=== PATIENT | female | born 1945 ===

== ENCOUNTER → 2016-10-04 | Outpatient (CLI) | payer MEDICARE, OTHER ==
[~2016-10-04] MED LIST: ADVIL200 MG PO; ALDACTONE25 MG PO; ARTIFICIAL TEAR15 ML OPHTH; COUMADIN ** IA5 MG PO; COUMADIN **IA1 MG PO; DILTIAZEM 24HR180 MG PO; FLONASE 50 MCG/16 GM NOSE; LASIX40 MG PO; MAGNESIUM250 M1 PO; MULTI-VITAMIN1 EACH PO; NORVASC5 MG PO; POTASSIUM PO; TIKOSYN250 MCG PO; TYLENOL EXTRA500 MG PO; VITAMIN C1000 MG PO; VITAMIN D-32000 UNI1 PO; XARELTO20 MG PO; ZANTAC (NON-FO150 MG PO
--- NOTE | ~2016-10-04 | ECHO ---
Stress Echocardiography Report Demographics Patient Name ANAM ARCE Date of Study 10/04/2016 Patient Number [id number] Visit Number [id number] Date of 1945 Room Number Accession Number [id number] Gender Female Age 71 year(s) Referring Christopher Rivas Cutter Helper Sary Seymour RDCS, Physician MD AGUILART Thomas Campbell RDCS, T Physician Interpreting Christopher Trucksmith Physician Evelyn PATRICIO Supervising Christopher Rivas Ordering Christopher PATRICIO/VLAD PATRICIO Physician Evelyn PATRICIO Nurse Marta Shankar RN Stress Third Rigger Sary Seymour RDCS, RVT The procedure was explained in detail to the patient. Risks, complications and alternative treatments were reviewed. Written consent was obtained. Medications Reviewed with Patient prior to Procedure. Conclusions Summary Duration:3:08 mins. METs:4.7 DP:18 K. Achieved:84% MPHR. No chest pain. Reason for termination:Fatigue and SOB. EKG:No ischemia. No arrythmias. DTS:3 (moderate risk). MR did not significantly get worse. Echo:No inducible ischemia. Procedure Type of Study Stress procedure:Treadmill Stress Echo w/o Contrast. Procedure Date Date: 10/04/2016 Start: 02:32 PM End: 02:41 PM Study Location: Echo Lab Indications:Mitral regurgitation. Patient Status: Routine Rhythm: Atrial fibrillation HR: 76 bpm BP: 127/94 mmHg Allergies - No known allergies. Risk Factors - The patient's risk factor(s) include: atrial fibrillation, chronic lung disease and arterial hypertension. - The patient has a former tobacco history. Rest ECG Within normal limits. Atrial fibrillation. Resting HR:78 bpmResting BP:127/94 mmHg Stress Stress Type: Exercise Predicted HR: 151 bpm Results Symptoms Shortness of breath. M-Mode/2D Measurements LA volume: 82 ml LVOT VTI: 13.1 cm Doppler Measurements AV Peak Velocity: 1.49 m/s MV Peak E-Wave: 1.12 m/s AV Peak Gradient: 8.88 mmHg MV Peak A-Wave: 0.33 m/s AV Mean Gradient: 4 mmHg MV E/A Ratio: 3.43 LVOT Peak Velocity: 0.74 m/s MV P1/2t: 89 msec MV Mean Gradient: 85 mmHg TR Velocity:3.29 m/s Estimated RAP:3 mmHg PV Peak Velocity: 1.02 m/s Estimated RVSP: 46 mmHg PV Peak Gradient: 4.16 mmHg Estimated PASP: 46.3 mmHg Findings Left Atrium The left atrium is mildly dilated by LA volume index measurement. Mitral Valve Mild-moderate mitral regurgitation by color Doppler. Mild prolapse of both mitral valve leaflet. Aortic Valve The aortic valve is mildly sclerotic. There is trivial aortic regurgitation by color Doppler. Tricuspid Valve Mild tricuspid regurgitation by color Doppler. Pulmonic Valve Mild-moderate pulmonic valve regurgitation by color Doppler. Contractility Score Rest LV regional wall motion:(0-Non visualized 1-Normal 2-Hypokinesis 3-Akinesis 4-Dyskinesis 5-Aneurysm) Signature dtt: Evelyn White dtd: 10/04/16 [id number] Physician Self Edit
== END | disposition disaster alternative care site (69) ==
LOC: GLAB 12:00 → GCAR 13:00 → GLAB 13:45
DX: I34.0 Nonrheumatic mitral (valve) insufficiency (principal); I10 Essential (primary) hypertension; I48.91 Unspecified atrial fibrillation

== ENCOUNTER 2016-10-10 10:00 | Inpatient (IN) | payer MEDICARE, OTHER ==
[~2016-10-10] VITALS: Ht 177.8 cm; Wt 88.4 kg
--- NOTE | ~2016-10-10 | DS ---
PATIENT'S NAME: ANAM ARCE [facility] AGE: 71 Y [address] ROOM: [address] [place], [place] [address] LOCATION: GPCU ADMIT DATE: 10/10/2016 Discharge Summary DISCHARGE DATE: 10/12/2016 FAMILY PHYSICIAN: Daphne Gentile DO ATTENDING PHYSICIAN: Evelyn White DISCHARGE DIAGNOSES: 1. Decreased exercise tolerance and shortness of breath. 2. PAF, history of ablation, currently in atrial fibrillation. 3. Admitted Tikosyn initiation. The patient went into regular sinus rhythm once she reached 250 mcg twice a day. 4. Diastolic congestive heart failure. 5. Chronic obstructive pulmonary disease. 6. Sleep apnea, the patient is not treating at this time. 7. Dizziness, a sense of feeling like a drunk. 8. Hypertension. 9. Family history of coronary artery disease. 10. Moderate mitral regurgitation which does not significantly worsen with exercise. 11. Hiatal hernia and hyperacidity. MEDICATIONS: 1. Furosemide 40 mg a day. 2. Ranitidine 300 mg a day. 3. Diltiazem 180 mg a day. 4. Warfarin. 5. Ascorbic acid 1 g daily. 6. Vitamin D3 2000 units a day. 7. Magnesium 250 mg at night. 8. Polyvinyl alcohol drops to the eyes. 9. Aldactone 25 mg a day. 10. Dofetilide 250 mcg twice a day. COURSE IN THE HOSPITAL: The patient was brought in to initiate Tikosyn and cardiovert her. She has been on anticoagulation before she was brought in. Her EKGs were monitored. Tikosyn was initiated in an increasing dose. When the Tikosyn dosage increased 250 mcg she went into regular sinus rhythm. Her QTc stayed around 440 milliseconds without much increase or changes. Her potassium was maintained near 4.5 and magnesium greater than 2. The patient did not seem to be much better once her heart rate went back to regular rhythm. I wondered at that time whether she might feel a little better once physically the start to contract. Her vital signs are okay and she was feeling reasonably well, so she was sent home to be followed up as an outpatient. She is going to get her CPAP titration done as an outpatient. We will plan on seeing her in 10 days with an EKG and BMP. PATIENT'S NAME: ANAM ARCE [facility] AGE: 71 Y [address] ROOM: [place] [address] LOCATION: [facility] ADMIT DATE: 10/10/2016 Discharge Summary DISCHARGE DATE: 10/12/2016 FAMILY PHYSICIAN: Daphne Gentile DO ATTENDING PHYSICIAN: Evelyn White MD LAVELL DENTON/heidi /[id number] d: 10/15/162 t: 11/04/16 1449, DISCHARGE SUMMARY
--- NOTE | ~2016-10-10 | HP ---
PATIENT'S NAME: ANAM ARCE [facility] AGE: 71 Y [address] ROOM: [id number] [place], [place] [address] LOCATION: GPCU ADMIT DATE: 10/10/2016 History & Physical DISCHARGE DATE: FAMILY PHYSICIAN: Daphne Gentile DO ATTENDING PHYSICIAN: Evelyn White DATE OF SERVICE: HISTORY OF PRESENT ILLNESS: Mrs. Arce is a 71-year-old female patient whom I saw 1st on 10/02/2016 in clinic for shortness of breath and atrial fibrillation. She has had problems with weakness, tiredness, and shortness of breath for the past 4 years, all of which seemed to be after she started having atrial fibrillation. Initially, an echo was done, which showed dilated right heart chambers. At that time, a CT chest PE protocol revealed no pulmonary emboli. She did also have a sleep study which was abnormal, but she is unable to tolerate her CPAP. She since then has had a catheterization in [place] and was initially on amiodarone for about a year and a half. She eventually came off amiodarone, had ablation done, but she is back in atrial fibrillation now and she is continuing to feel very poorly. She has seen Dr. Ojeda before as well as Dr. Murillo. After she was seen in the office, I had her do a treadmill echocardiogram because of concern regarding a mitral regurgitation that was seen on her echocardiogram. She was only able to walk 3 minutes or so on the treadmill with significant shortness of breath. Her heart rate was not well controlled, she was already at 85% at 3 minutes. Her MR actually got no worse. There were no wall motion abnormalities noted. There was no clear evidence of significant inducible ischemia. Her proBNP was significantly elevated and so she is now being hospitalized to start on Tikosyn and get cardioverted. The patient currently seems to be in functional class 2-3 with no paroxysmal nocturnal dyspnea or orthopnea. She does have some lightheadedness. She denies any dizziness or syncope. She has some palpitations and some ankle swelling. She is not on any structured exercise program. The patient has history of tobacco use 50 years ago. She has some high blood pressure and some family history of premature coronary artery disease. She has no history of diabetes or elevated cholesterol. The patient denies NC or angina or nitroglycerin use. The patient has no history of rheumatic fever. She does have a history of heart murmur. She has no congestive heart failure that she knows of. CURRENT MEDICATIONS: Her current list of medications are: PATIENT'S NAME: ANAM ARCE [facility] AGE: 71 Y [address] ROOM: [address] [address] LOCATION: GPCU ADMIT DATE: 10/10/2016 History & Physical DISCHARGE DATE: FAMILY PHYSICIAN: Daphne Gentile DO ATTENDING PHYSICIAN: Evelyn White 1. Cartia XT 180 mg a day. 2. Furosemide 40 mg a day. 3. Warfarin. 4. Ibuprofen 200 mg b.i.d. p.r.n. 5. Ranitidine 150 mg once a day. 6. Potassium. 7. Vitamin D. 8. Vitamin C. 9. Magnesium. 10. Eucalyptus. ALLERGIES: NONE. PAST MEDICAL HISTORY: 1. Diverticulosis. 2. 12 inches of bowel removal. SOCIAL HISTORY: She lives in [place]. She is . She denies abusing alcohol. Her appetite and weight are stable. Sleep is fair. FAMILY HISTORY: No premature coronary artery disease. REVIEW OF SYSTEMS: A 12-point review of systems revealed the following positives: 1. Some COPD. 2. Hyperacidity. 3. Lack of energy. 4. Sinus problems. 5. History of hiatal hernia. 6. History of food sticking in her throat. 7. Arthritis and joint pains. PHYSICAL EXAMINATION: VITAL SIGNS: On examination, her blood pressure is 130/80, heart rate is in the 80s and irregular, respirations are 18, and afebrile. HEENT: Normal. NECK: Supple. No JVD, thyromegaly, lymphadenopathy, or carotid bruit. CARDIAC: PMI is not well located. First and second heart sounds are irregular. There are no added sounds or murmurs. CHEST: Clear to auscultation. ABDOMEN: Soft and nontender. Bowel sounds are normally present. EXTREMITIES: Reveal no edema. CENTRAL NERVOUS SYSTEM: Intact. She does PATIENT'S NAME: ANAM ARCE [facility] AGE: 71 Y [address]: [address] [address] LOCATION: [facility] ADMIT DATE: 10/10/2016 History & Physical DISCHARGE DATE: FAMILY PHYSICIAN: Daphne Gentile DO ATTENDING PHYSICIAN: Evelyn White have a very soft systolic murmur in the left sternal edge. ASSESSMENT: 1. A 71-year-old female patient with atrial fibrillation of which she is very symptomatic of. It appears as if when she was in regular rhythm, she felt better. 2. Some of her symptoms I think are probably from sleep apnea, and we will try to address that as well. 3. Chose Tikosyn because it appears as if she failed amiodarone at one point some years ago, and we will try to see if she will tolerate Tikosyn. We will also increase the diuretics and get records from [place] where she had her sleep study and heart cath report from [place] where she had the cardiac catheterization done. MD LAVELL DENTON/heidi /[id number] D: [id number] T: [id number] HISTORY & PHYSICAL
--- NOTE | ~2016-10-10 | PUL ---
PATIENT'S NAME: ANAM ARCE [facility] AGE: 71 Y [address] ROOM: [address] [address] LOCATION: GPCU ADMIT DATE: 10/10/2016 Pulmonary DISCHARGE DATE: 10/12/2016 FAMILY PHYSICIAN: Daphne Gentile DO ATTENDING PHYSICIAN: Evelyn White NAME OF PROCEDURE: Overnight Pulse Oximetry DATE OF PROCEDURE: October 10 to October 11, 2016 REASON FOR PROCEDURE: Nocturnal hypoxemia RESULTS: The test was performed on room air. The recording time was 8 hours, 30 minutes and 8 seconds, with a total valid sampling time of 7 hours, 51 minutes and 24 seconds. The highest pulse was 105, lowest pulse was 45 with a mean pulse of 71. The highest SpO2 was 99%, lowest SpO2 was 77%, with a mean SpO2 of 93.2%. The patient spent 5 minutes with SpO2 less than 89%, representing 1.1% of the total sleep time. The duration event index was elevated at 9.8. PHYSICIAN INTERPRETATION: The patient has minimal significant nocturnal hypoxia and would qualify for supplemental oxygen as per Medicare criteria. However, because of her significant nocturnal hypoxia with an elevated desaturation event index a sleep study is recommended this time. MD NIECY BARNES/beth /[id number] dtt: 10/16/16 1542 , BARBARA CONNOLLY dtd: 10/16/16 1144
[~2016-10-10 10:00] MED LIST changes: -ADVIL200 MG PO; -ALDACTONE25 MG PO; -ARTIFICIAL TEAR15 ML OPHTH; -COUMADIN ** IA5 MG PO; -COUMADIN **IA1 MG PO; -MAGNESIUM250 M1 PO; -POTASSIUM PO; -TIKOSYN250 MCG PO; -VITAMIN C1000 MG PO; -VITAMIN D-32000 UNI1 PO
[2016-10-10] MEDS ORDERED: COUMADIN ** IA5 MG PO (15:42)
[2016-10-10] MEDS ORDERED: POTASSIUM PO (15:43)
[2016-10-10] MEDS ORDERED: COUMADIN **IA1 MG PO (15:43)
[2016-10-10] MEDS ORDERED: VITAMIN C1000 MG PO (15:43)
[2016-10-10] MEDS ORDERED: VITAMIN D-32000 UNI1 PO (15:44)
[2016-10-10] MEDS ORDERED: MAGNESIUM250 M1 PO (15:44)
[2016-10-10] MEDS ORDERED: ADVIL200 MG PO (15:45)
[2016-10-10] MEDS ORDERED: ARTIFICIAL TEAR15 ML OPHTH (15:46)
--- NOTE | 2016-10-10 15:57 | NUR ---
Pt is 71 y/o female admit for initiation of medication,Tikosyn for . Pt independent, alert and oriented x3. Resides at home by herself. Hx htn,pulmonary htn,afib,COPD,sleep apnea-ref CPAP,ulcer stomach, SOB w activity,diverticulitis,gerd,sinus infections. Pt allergic to many inhalers but couldn't remember all of them. She did name Spireva,Advair,and albuterol. REd bracelet on.
--- NOTE | 2016-10-10 17:06 | NUR ---
Significant Event: A/OX3, VSS ON ROOM AIR. PT. UP AD MARKY IN ROOM. NO COMPLAINTS OF PAIN. IV STARTED TO LEFT POSTERIOR FOREARM. LABS DRAWN, EKG DONE. PT. STARTING ON TIKOSIN MEDICINE. DR. Zaidi WANTS TO BE CALLED WHEN CREAT LEVEL IN BACK. Follow up: CONTINUE WITH POC.
[2016-10-10 17:21] LABS: BASOPHIL # 0.1 K/uL (0.0-0.2); BASOPHIL % 0.8 %; EOSINOPHIL # 0.1 K/uL (0.0-0.5); EOSINOPHIL % 1.1 %; HEMATOCRIT 41.4 % (33.0-46.0); HEMOGLOBIN 13.8 g/dL (10.0-15.0); IMMATURE GRANULOCYTE % 0.2 %; LYMPHOCYTE # 2.6 K/uL (0.8-4.0); LYMPHOCYTE % 42.8 %; MCH 30.5 pg (27.0-34.0); MCHC 33.3 gm/dL (32.0-36.5); MCV 91.6 fl (83.0-98.0); MONOCYTE # 0.6 K/uL (0.0-1.0); MONOCYTE % 9.8 %; MPV 9.7 fl (9.4-12.4); NEUTROPHIL # (ANC) 2.8 K/uL (1.8-7.8); NEUTROPHIL % 45.3 %; NRBC % 0 /100WBC (0-0.00); PLATELET COUNT 240 K/uL (150-450); RBC 4.52 M/uL (3.50-5.50); WBC 6.1 K/uL (4.0-11.0)
[2016-10-10 17:28] LABS: INR - (THERAPEUTIC) 1.96 (0.92-1.07); PROTIME 20.7 SECONDS (9.8-11.4)
[2016-10-10 17:40] LABS: ANION GAP 12.7 (10.0-19.0); BLOOD UREA NITROGEN 25 mg/dL (6-24); CALCIUM 8.5 mg/dL (8.5-10.5); CHLORIDE 109 mMol/L (96-110); CO2 25 mMol/L (22-32); ESTIMATED GFR (MDRD EQUATION) 55; MAGNESIUM 2.3 mg/dL (1.8-2.6); POTASSIUM 3.7 mMol/L (3.7-5.1); SODIUM 143 mMol/L (135-145)
[2016-10-11 04:10] LABS: ANION GAP 11.4 (10.0-19.0); BLOOD UREA NITROGEN 24 mg/dL (6-24); CALCIUM 8.4 mg/dL (8.5-10.5); CHLORIDE 108 mMol/L (96-110); CO2 25 mMol/L (22-32); CREATININE 0.9 mg/dL (0.5-1.1); ESTIMATED GFR (MDRD EQUATION) > 60; POTASSIUM 4.4 mMol/L (3.7-5.1); SODIUM 140 mMol/L (135-145)
--- NOTE | 2016-10-11 04:50 | NUR ---
Significant Event: Patient is alert and oriented x 3. VSS on room air. Overnight trend ox going. HRs in the 70s. SBPs in the 130s-140s. Afebrile. Up independently in room. In a.fib. SOB with activity. Voiding well. Denies any pain. Right and left forearm IVs, saline locked. 40 meq of PO Potassium given this shift x 2 along with 2 grams of IV magnesium before Tikosyn was given. Tikosyn given at 2300. EKG done 3 hours after, at 0200. Patient is pleasant and cooperative with cares. Follow up:
--- NOTE | 2016-10-11 11:27 | NUR ---
reviewed student charting and on the floor from [id number] apolonia rn-ccc
--- NOTE | 2016-10-11 15:10 | NUR ---
Introduced self and role of care management to patient. She lives in [place] by herself. She states that she is able to do all her own ADL's. She states that she has 2 sons that lives close by that would assist if needed. She plans on returning home on discharge. She denies any needs at this time. Will continue to follow.
--- NOTE | 2016-10-11 15:45 | NUR ---
A/Ox3. VSS on RA. Up independently in room and hallway. A. fib, SOB with activity. Voiding well per toilet. 2 BM's today. R and L FA IV's SL and flushing well. EKG 1 hour prior to next tikosyn dose and 2-3 hours after dose. Last QTC 429. No complaints of pain throughout shift.
[2016-10-12 04:00] LABS: CREATININE 1.1 mg/dL (0.5-1.1)
--- NOTE | 2016-10-12 08:07 | NUR ---
Significant Event: DENIED PAIN ALL NIGHT. EKG DONE 1 HR PRIOR AND 2HRS AFTER TIKOSYN. QTc LESS THAN 500 EACH TIME. STILL C/O SOB WITH ACTIVITY. UP AD MARKY IN ROOM AND TO BR. Follow up:
[2016-10-12] MEDS ORDERED: ALDACTONE25 MG PO (15:28)
[2016-10-12] MEDS ORDERED: TIKOSYN250 MCG PO (15:31)
--- NOTE | 2016-10-12 18:44 | NUR ---
I HAVE READ AND AGREE WITH CHARTING BY Akhil GONZALEZ STUDENT NURSE.
== END 2016-10-12 16:45 | disposition disaster alternative care site (69) | DRG 309 ==
LOC: GPCU 14:30
PROVIDERS: ADMIT Internal Medicine Interventional Cardiology
PROC: 3E0F7GC Introduction of Other Therapeutic Substance into Respiratory Tract, Via Natural or Artificial Opening (ICD-10-PCS; principal; 2016-10-10)
DX: I48.0 Paroxysmal atrial fibrillation (principal); I50.30 Unspecified diastolic (congestive) heart failure; I11.0 Hypertensive heart disease with heart failure; J44.9 Chronic obstructive pulmonary disease, unspecified; G47.30 Sleep apnea, unspecified; I34.0 Nonrheumatic mitral (valve) insufficiency; K44.9 Diaphragmatic hernia without obstruction or gangrene; K31.89 Other diseases of stomach and duodenum; Z82.49 Family history of ischemic heart disease and other diseases of the circulatory system; Z87.891 Personal history of nicotine dependence; K57.90 Diverticulosis of intestine, part unspecified, without perforation or abscess without bleeding; Z51.81 Encounter for therapeutic drug level monitoring
CPT/HCPCS: J3475

== ENCOUNTER → 2016-10-24 | Outpatient (CLI) | payer MEDICARE, OTHER ==
[~2016-10-24] MED LIST changes: +ADVIL200 MG PO; +ALDACTONE25 MG PO; +ARTIFICIAL TEAR15 ML OPHTH; +COUMADIN ** IA5 MG PO; +COUMADIN **IA1 MG PO; +MAGNESIUM250 M1 PO; +POTASSIUM PO; +TIKOSYN250 MCG PO; +VITAMIN C1000 MG PO; +VITAMIN D-32000 UNI1 PO
[2016-10-24 15:17] LABS: ANION GAP 10.2 (10.0-19.0); CALCIUM 8.8 mg/dL (8.5-10.5); CREATININE 1.3 mg/dL (0.5-1.1); POTASSIUM 4.2 mMol/L (3.7-5.1)
== END ==
LOC: LGSOS 15:02
PROVIDERS: Internal Medicine Interventional Cardiology
DX: I48.1 Persistent atrial fibrillation (principal)

== ENCOUNTER → 2016-10-31 | Outpatient (CLI) | payer MEDICARE, OTHER ==
--- NOTE | ~2016-10-31 | PUL ---
PATIENT'S NAME: ANAM ARCE [facility] AGE: 71 Y [address] ROOM: [place] [address] LOCATION: [facility] ADMIT DATE: 10/31/2016 Pulmonary DISCHARGE DATE: FAMILY PHYSICIAN: PHYSICIAN, UNKNOWN ATTENDING PHYSICIAN: Evelyn White NAME OF PROCEDURE: Sleep Study PROCEDURE DATE: 10/31/16 TECH: MER Dorman TEST #: [facility]# [id number] TECHNICAL PARAMETERS: The patient was studied using International 10/20 measuring system. While the patient was studied, there was continuous monitoring of EEG (8 leads), EOG (2 leads), EKG (3 leads), submental EMG (3 leads), tibial (4 leads), respiratory inductive plethysmography (RIP) for thoracic and abdominal effort, oral and nasal airflow with a thermocouple and pressure transducer, and oximetry. The field map technician also performed visual and auditory observations noting things like body position, patient's status, breath sounds, artifact, snoring level and patient comments. Continuous sound was monitored using a 2-way speaker system and video monitoring was performed using an infrared camera. Review of the entire study was performed epoch by epoch utilizing a single epoch and multiple epoch capability sleep system. MEDICAL HISTORY: The patient is a 71-year-old overweight woman with daytime sleepiness and snoring. SLEEP STAGE SUMMARY: The patient was studied for 477 minutes of which she slept 397 minutes. She fell asleep in 16 minutes and slept for 83% of the night. Sleep architecture revealed a mild decline in slow wave sleep. RESPIRATORY SUMMARY: This study was done to titrate CPAP which was started at 5 cm and titrated to 7 cm with excellent control of the respiratory events. EKG SUMMARY: Average heart rate 53 beats per minute. Much of the night was spent in sinus bradycardia. LIMB MOVEMENT SUMMARY: No clinically relevant periodic limb movements were noted. SUMMARY: Obstructive sleep apnea responsive to CPAP at 7 cm. PLAN: Suggest CPAP at 7 cm. Patient will receive results from the ordering PATIENT'S NAME: ANAM ARCE [facility] AGE: 71 Y [address] ROOM: [place] [address] LOCATION: [facility] ADMIT DATE: 10/31/2016 Pulmonary DISCHARGE DATE: FAMILY PHYSICIAN: PHYSICIAN, UNKNOWN ATTENDING PHYSICIAN: Evelyn White provider. MD MAK PEREIRA/clark /[id number] dtt: 11/08/16 0721 , Hector Bailey dtd: 11/04/16 1205
== END | disposition disaster alternative care site (69) ==
LOC: GSLP 20:31
DX: G47.33 Obstructive sleep apnea (adult) (pediatric) (principal)

== ENCOUNTER → 2016-12-25 | Outpatient (CLI) | payer MEDICARE, OTHER ==
[2016-12-25 15:42] LABS: ANION GAP 9.8 (10.0-19.0); CALCIUM 8.7 mg/dL (8.5-10.5); MAGNESIUM 2.3 mg/dL (1.8-2.6); POTASSIUM 3.8 mMol/L (3.7-5.1)
== END ==
LOC: LGSOS 15:19
PROVIDERS: Internal Medicine Interventional Cardiology
DX: I48.0 Paroxysmal atrial fibrillation (principal)

== ENCOUNTER → 2017-03-03 | Outpatient (CLI) | payer MEDICARE, OTHER ==
[2017-03-03 10:50] LABS: ANION GAP 10.8 (10.0-19.0); CALCIUM 9.7 mg/dL (8.5-10.5); CREATININE 1.1 mg/dL (0.5-1.1); POTASSIUM 3.8 mMol/L (3.7-5.1)
== END ==
LOC: LGSOS 10:11
PROVIDERS: Internal Medicine Interventional Cardiology
DX: I50.32 Chronic diastolic (congestive) heart failure (principal); E03.9 Hypothyroidism, unspecified